=== PATIENT | male | born 1970 | race Hispanic/Latino ===

== ENCOUNTER 2017-08-24 09:53 | Outpatient (CLI) | payer OTHER ==
--- NOTE | 2017-08-24 11:54 | RAD ---
SIX VIEWS CERVICAL SPINE: Indication: History of cervical fusion. FINDINGS: Exam is compared to a prior dated 01-27-17. ACDF at C6-7 appears unchanged. No abnormal translational motion is evident. Mild spondylosis of the cervical spine is similar. No acute fracture is evident. Lung apices are clear. Lateral masses are sy mmetric. IMPRESSION: Stable post-operative cervical spine. POS: [facility]
== END 2017-08-24 09:54 | disposition home or self-care (01) ==
LOC: TBSIIMAG 09:53
PROVIDERS: ATTEND Neurological Surgery
DX: M50.30 Other cervical disc degeneration, unspecified cervical region (principal); Z98.1 Arthrodesis status
CPT/HCPCS: 36415; 72050; 84439; 84481

== ENCOUNTER 2017-10-01 11:58 | Outpatient (CLI) | payer OTHER ==
--- NOTE | 2017-10-01 13:11 | RAD ---
PA AND LATERAL CHEST: Date: 10/01/17 HISTORY: Bronchitis. Patient complains of cough and congestion since August 2017. Low grade fever. COMPARISON: None available. FINDINGS: Postsurgical changes related to anterior cervical fusion of the lower cervical spine are noted. Cardi ac silhouette and pulmonary vasculature are within normal limits. The lungs are clear. Osseous struct ures are intact. IMPRESSION: No acute cardiopulmonary process. POS: [facility]
== END 2017-10-01 11:59 | disposition home or self-care (01) ==
LOC: SCSRAD 11:58
PROVIDERS: ATTEND Family Medicine
DX: J40 Bronchitis, not specified as acute or chronic (principal)
CPT/HCPCS: 71046

== ENCOUNTER 2017-11-17 12:02 | Emergency (ER) | payer OTHER | END 2017-11-17 13:15 | disposition home or self-care (01) | LOC: ERS 12:02 | DX: T59.811A Toxic effect of smoke, accidental (unintentional), initial encounter (principal); J70.5 Respiratory conditions due to smoke inhalation; I10 Essential (primary) hypertension; F17.210 Nicotine dependence, cigarettes, uncomplicated; Y92.009 Unspecified place in unspecified non-institutional (private) residence as the place of occurrence of the external cause | CPT/HCPCS: 94640 ==

== ENCOUNTER 2019-05-01 12:33 | Emergency (ER) | payer SELFPAY ==
[2019-05-01] MEDS ORDERED: Fentanyl 100 MCG/2 ML VIAL ONE (13:46)
[2019-05-01] MEDS ORDERED: Ketorolac Tromethamine 30 MG/ML VIAL ONE (13:46)
[2019-05-01] MEDS ORDERED: Lorazepam 2 MG/ML VIAL ONE (13:46)
[2019-05-01] MEDS ORDERED: Dexamethasone 10 MG/ML VIAL ONE (13:46)
--- NOTE | 2019-05-01 14:42 | CT ---
CT cervical spine without contrast: 05/01/2019 COMPARISON: None available HISTORY: Left-sided upper extremity radiculopathy TECHNIQUE: Axial CT imaging at 2.5 mm intervals through the cervical spine without contrast. Coronal and sagittal reformatted imaging obtained. FINDINGS: Evaluation for central canal and neural foraminal stenosis is limited on CT exam. The imaged lung apices are grossly unremarkable. There is mild degenerative change at the atlantoaxial interspace. The craniocervical junction and the atlantoaxial interspace demonstrate no acute findings. Anterior d iscectomy and fusion hardware is present at C6-7. No prevertebral soft tissue swelling. C2-3: No osseous cause of significant central canal or neural foraminal stenosis. C3-4: No osseous cause of significant central canal or neural foraminal stenosis. C4-5: Probable minimal disc bulge. No osseous cause of significant central canal or neural foraminal stenosis. C5-6: Mild bilateral uncovertebral osteophyte formation. No osseous cause of significant central christiano l or neural foraminal stenosis. C6-7: Disc space narrowing. Posterior osteophyte noted. Uncovertebral osteophyte formation noted bilaterally, left greater than right. On the basis of osteop hyte formation there is moderate/severe left-sided neural foraminal stenosis. Probable mild right neural foraminal stenosis. Posterior osteophyte formation causes at least mild central canal stenosis . C7-T1: No osseous cause of significant central canal or neural foraminal stenosis. No worrisome lytic or blastic bone lesion. No acute fracture or dislocation. IMPRESSION: Degenerative and postoperative change within the cervical spine as detailed above. Most s ignificant finding is left sided neural foraminal stenosis at C6-7 on the basis of uncovertebral osteophyte formation.
== END 2019-05-01 16:31 | disposition home or self-care (01) ==
LOC: ERS 12:33
DX: M48.02 Spinal stenosis, cervical region (principal); I10 Essential (primary) hypertension; F17.210 Nicotine dependence, cigarettes, uncomplicated
CPT/HCPCS: 72125; 96374; 96375; J1100; J1885; J2060; J3010